=== PATIENT | female | born 1970 | race Caucasian/White ===

== ENCOUNTER 2017-07-17 17:01 | Inpatient (IN) | payer MEDICAID ==
[~2017-07-17] VITALS: Ht 165.1 cm; Wt 77.6 kg
[2017-07-17 17:48] VITALS: BP 127/89
[2017-07-17] MEDS: LORazepam 2 MG TABLET PO PRN (18:36)
[2017-07-17 19:30] VITALS: BP 153/85
[2017-07-17] MEDS ORDERED: ALBUTEROL SULFATE/IPRATROPIUM 100-20 MCG/SPRAY 4 GM INHALER IH PRN (21:15)
[2017-07-17] MEDS: ZOLPIDEM TARTRATE 10 MG TABLET PO PRN (21:18)
[2017-07-17] MEDS ORDERED: ALBUTEROL SULFATE HFA 90 MCG/PUFF 8 GM INHALER IH PRN (21:45)
[2017-07-18] MEDS: LORazepam 2 MG TABLET PO PRN ×3 (00:15→16:03)
[2017-07-18 00:30] VITALS: BP 142/83
[2017-07-18] MEDS: NICOTINE 21 MG/24 HOUR PATCH TD SCH (08:22)
[2017-07-18 08:47] LABS: BASOPHILS % (AUTO) 0.8 % (0.0-2.0); EOSINOPHILS % (AUTO) 3.4 % (1.0-6.0); HEMATOCRIT 43.2 % (36-46); HEMOGLOBIN 14.9 g/dL (12.0-16.0); LYMPHOCYTES # (AUTO) 2.1 K/uL (1.0-4.8); LYMPHOCYTES % (AUTO) 24.5 % (22.0-44.0); MEAN CORPUSCULAR HGB CONC 34.5 G/dL (31.0-37.0); MEAN CORPUSCULAR VOLUME 93 fL (80-100); MONOCYTES # (AUTO) 0.6 K/uL (0.1-1.0); NEUTROPHILS # (AUTO) 5.6 K/uL (1.8-7.7); NEUTROPHILS % (AUTO) 64.3 % (40.0-70.0); PLATELET COUNT (AUTO) 335 K/uL (150-450); RED BLOOD CELL COUNT(AUTO) 4.65 MIL/uL (4.00-5.20); RED CELL DISTRIBUTION WIDTH 13.4 % (11.5-14.5)
[2017-07-18 09:31] LABS: AMPHET/METH SCREEN,URINE NEGATIVE (NEGATIVE); BARBITURATE SCREEN, URINE NEGATIVE (NEGATIVE); BENZODIAZEPINES SCREEN,URINE NEGATIVE (NEGATIVE); CANNABINOID SCREEN,URINE POSITIVE (NEGATIVE); COCAINE SCREEN,URINE NEGATIVE (NEGATIVE); METHADONE SCREEN, URINE NEGATIVE (NEGATIVE); OPIATE SCREEN,URINE NEGATIVE (NEGATIVE)
[2017-07-18 09:36] LABS: PHENCYCLIDINE SCREEN,URINE NEGATIVE (NEGATIVE)
[2017-07-18 09:43] LABS: APPEARANCE,URINE CLEAR (CLEAR); BILIRUBIN,URINE NEGATIVE (NEGATIVE); GLUCOSE, URINE (UA) NEGATIVE (NEGATIVE); KETONES,URINE NEGATIVE (NEGATIVE); LEUKOCYTE ESTERASE ,URINE MODERATE (NEGATIVE); NITRATE,URINE NEGATIVE (NEGATIVE); OCCULT BLOOD,URINE SMALL (NEGATIVE); PROTEIN,URINE NEGATIVE (NEGATIVE); UROBILINOGEN,URINE 0.2 mg/dL (<=1.0)
[2017-07-18 09:52] LABS: BACTERIA,URINE Rare /HPF (None Seen); SQUAMOUS EPITHELIAL CELL,UR Moderate /LPF (None Seen)
[2017-07-18 10:17] LABS: ALANINE AMINOTRANSFERASE 38 U/L (12-78); ALKALINE PHOSPHATASE 133 U/L (46-116); ANION GAP 9 mmol/L (8-16); ASPARTATE AMINOTRANSFERASE 27 U/L (15-37); BILIRUBIN,TOTAL 0.2 mg/dL (0.1-1.0); CARBON DIOXIDE 26 mmol/L (22-29); CHLORIDE 94 mmol/L (98-107); CHOL/HDL RATIO 2.9 (3.9-5.7); CHOLESTEROL 171 mg/dL (131-200); CREATININE 0.55 mg/dL (0.60-1.30); FREE T4 (FREE THYROXINE) 0.66 ng/dL (0.76-1.46); GLOMERULAR FILTR. RATE CALC > 60 mL/min (>60); GLUCOSE,RANDOM 131 mg/dL (70-110); HCG,QUANTITATIVE < 1 mIU/mL (0-6); HDL CHOLESTEROL 60 mg/dL (40-60); LDL CHOL (CALC.) 87 mg/dL (0-130); POTASSIUM 3.9 mmol/L (3.5-5.1); SODIUM SERUM 129 mmol/L (136-145); THYROID STIMULATING HORMONE 1.28 uIU/mL (0.36-3.74); TOTAL PROTEIN, SERUM 7.6 g/dL (6.4-8.2); TRIGLYCERIDES 119 mg/dL (15-150); UREA NITROGEN, BLOOD 9 mg/dL (7-18)
[2017-07-18 10:51] LABS: HEMOGLOBIN A1C 5.7 % (4.5-6.2)
[2017-07-18] MEDS: CIPROFLOXACIN HCL 250 MG TABLET PO SCH ×2 (11:45→16:03)
[2017-07-18] MEDS: SODIUM CHLORIDE 1 GM TABLET PO SCH (16:02)
[2017-07-18 20:36] VITALS: BP 159/96
[2017-07-18] MEDS: CloNIDine HCL 0.1 MG TABLET PO PRN (20:37)
[2017-07-18 21:37] VITALS: BP 144/90
[2017-07-19] VITALS (7 sets, daily range): BP systolic 134–162; BP diastolic 76–110
[2017-07-19] MEDS: NICOTINE 21 MG/24 HOUR PATCH TD SCH (08:26)
[2017-07-19] MEDS: SODIUM CHLORIDE 1 GM TABLET PO SCH ×2 (08:26→16:45)
[2017-07-19] MEDS: CIPROFLOXACIN HCL 250 MG TABLET PO SCH ×2 (08:26→16:45)
[2017-07-19] MEDS: LORazepam 2 MG TABLET PO PRN ×2 (08:27→14:12)
[2017-07-19] MEDS: QUEtiapine FUMARATE 100 MG TABLET PO PRN (09:06)
[2017-07-19] MEDS: CloNIDine HCL 0.1 MG TABLET PO PRN (16:14)
[2017-07-19] MEDS: OXcarbazepine 300 MG TABLET PO SCH (18:13)
[2017-07-19] MEDS: QUEtiapine FUMARATE 300 MG TABLET PO SCH (20:33)
[2017-07-20] MEDS: ZIPRASIDONE HCL 80 MG CAPSULE PO SCH ×2 (06:12→16:26)
[2017-07-20 06:21] VITALS: BP 132/78
[2017-07-20 08:36] VITALS: BP 130/79
[2017-07-20] MEDS: CIPROFLOXACIN HCL 250 MG TABLET PO SCH ×2 (08:56→16:26)
[2017-07-20] MEDS: QUEtiapine FUMARATE 100 MG TABLET PO PRN ×2 (08:56→14:32)
[2017-07-20] MEDS: SODIUM CHLORIDE 1 GM TABLET PO SCH ×2 (08:56→16:26)
[2017-07-20] MEDS: LORazepam 2 MG TABLET PO PRN ×3 (08:56→22:02)
[2017-07-20] MEDS: OXcarbazepine 300 MG TABLET PO SCH ×2 (08:56→16:26)
[2017-07-20] MEDS: NICOTINE 21 MG/24 HOUR PATCH TD SCH (08:56)
[2017-07-20 16:15] VITALS: BP 140/88
[2017-07-20] MEDS: QUEtiapine FUMARATE 300 MG TABLET PO SCH (20:19)
[2017-07-20] MEDS: ZOLPIDEM TARTRATE 10 MG TABLET PO PRN (21:07)
[2017-07-21 00:15] VITALS: BP 121/87
[2017-07-21] MEDS: ZIPRASIDONE HCL 80 MG CAPSULE PO SCH ×2 (06:15→16:18)
[2017-07-21 07:37] LABS: ALANINE AMINOTRANSFERASE 32 U/L (12-78); ALBUMIN 3.4 g/dL (3.4-5.0); ALKALINE PHOSPHATASE 122 U/L (46-116); ANION GAP 7 mmol/L (8-16); ASPARTATE AMINOTRANSFERASE 18 U/L (15-37); BILIRUBIN,TOTAL 0.4 mg/dL (0.1-1.0); CALCIUM, TOTAL 8.8 mg/dL (8.8-10.5); CARBON DIOXIDE 28 mmol/L (22-29); CHLORIDE 98 mmol/L (98-107); CREATININE 0.53 mg/dL (0.60-1.30); GLOMERULAR FILTR. RATE CALC > 60 mL/min (>60); GLUCOSE,RANDOM 90 mg/dL (70-110); POTASSIUM 4.2 mmol/L (3.5-5.1); SODIUM SERUM 133 mmol/L (136-145); TOTAL PROTEIN, SERUM 6.8 g/dL (6.4-8.2); UREA NITROGEN, BLOOD 8 mg/dL (7-18)
[2017-07-21 08:00] VITALS: BP 155/98
[2017-07-21] MEDS: SODIUM CHLORIDE 1 GM TABLET PO SCH ×2 (08:50→16:17)
[2017-07-21] MEDS: LORazepam 2 MG TABLET PO PRN ×2 (08:50→16:18)
[2017-07-21] MEDS: NICOTINE 21 MG/24 HOUR PATCH TD SCH (08:50)
[2017-07-21] MEDS: OXcarbazepine 300 MG TABLET PO SCH ×2 (08:50→16:17)
[2017-07-21] MEDS: CIPROFLOXACIN HCL 250 MG TABLET PO SCH ×2 (08:50→16:18)
[2017-07-21] MEDS: CloNIDine HCL 0.1 MG TABLET PO PRN (08:51)
[2017-07-21 10:00] VITALS: BP 122/78
[2017-07-21 16:16] VITALS: BP 148/100
[2017-07-21] MEDS: TRIHEXYPHENIDYL HCL 2 MG TABLET PO SCH (20:10)
[2017-07-21] MEDS: QUEtiapine FUMARATE 300 MG TABLET PO SCH (20:10)
[2017-07-21] MEDS: ZOLPIDEM TARTRATE 10 MG TABLET PO PRN (21:05)
[2017-07-22] MEDS: LORazepam 2 MG TABLET PO PRN ×2 (00:15→09:02)
[2017-07-22 00:28] VITALS: BP 127/69
[2017-07-22] MEDS: ZIPRASIDONE HCL 80 MG CAPSULE PO SCH (06:49)
[2017-07-22] MEDS: CIPROFLOXACIN HCL 250 MG TABLET PO SCH (09:02)
[2017-07-22] MEDS: TRIHEXYPHENIDYL HCL 2 MG TABLET PO SCH (09:02)
[2017-07-22] MEDS: SODIUM CHLORIDE 1 GM TABLET PO SCH (09:02)
[2017-07-22] MEDS: OXcarbazepine 300 MG TABLET PO SCH (09:02)
[2017-07-22] MEDS: NICOTINE 21 MG/24 HOUR PATCH TD SCH (09:04)
[2017-07-22] MEDS ORDERED: TRIH2TAB3 PO ×2 (11:29→11:33)
[2017-07-22] MEDS ORDERED: ZIPR80CA2 PO ×2 (11:31→11:34)
[2017-07-22] MEDS ORDERED: QUET300T2 PO (11:34)
[2017-07-22] MEDS ORDERED: OXCA300T PO ×2 (11:43→11:45)
[2017-07-22] MEDS ORDERED: CIP250 PO (11:55)
[2017-07-22 12:47] VITALS: BP 127/69
== END 2017-07-22 12:15 | disposition home or self-care (01) | DRG 750 ==
LOC: B3A 18:01
PROVIDERS: ADMIT Psychiatry & Neurology Psychiatry; ATTEND Psychiatry & Neurology Psychiatry
DX: F25.9 Schizoaffective disorder, unspecified (principal); E87.1 Hypo-osmolality and hyponatremia; I10 Essential (primary) hypertension; J45.909 Unspecified asthma, uncomplicated; N39.0 Urinary tract infection, site not specified; F19.10 Other psychoactive substance abuse, uncomplicated; Z88.8 Allergy status to other drugs, medicaments and biological substances
CPT/HCPCS: 80307; 83036; 84439; 84443; J3535